=== PATIENT | female | born 1985 | race African-American/Black ===

== ENCOUNTER 2016-11-20 15:22 | Emergency (ER) | payer OTHER ==
[~2016-11-20] VITALS: Ht 165.1 cm; Wt 135.0 kg
[~2016-11-20 15:22] MED LIST: LORA10TA7 PO; PRENCAP6 PO
[2016-11-20 15:28] VITALS: BP 120/69; PULSE 85; RESP 20; TEMP 98.7; O2SAT 98
--- NOTE | 2016-11-20 15:59 | PD ---
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 Patient states she was going up the stairs in her home today when she developed abdominal cramping and a sharp pain and then started bleeding vaginally. She states that her last menstrual cycle was on September 12, 2016. She reports taking several home tests that were negative. [facility]. She denies any significant past medical history. Patient is PFSH Past Medical History Medical History: Denies Significant Hx Diminished Hearing: No ?: Not LMP: 09/12/16 : 1 Para: 1 Past Surgical History Surgical History: No Previous Surgery Social History Alcohol Use: No Tobacco Use: No Substance Use: No Allergies-Medications (Allergen,Severity, Reaction): Coded Allergies: No Known Allergies (Unverified , 11/20/16) Reported Meds & Prescriptions Reported Meds & Active Scripts Active Claritin (Loratadine) 10 Mg Tab 10 Mg PO DAILY Reported 1 ( Multivitamins) Cap 1 Cap PO DAILY Review of Systems Except as stated in HPI: all other systems reviewed are Neg Genitourinary: Positive: Pelvic Pain, Vaginal Bleeding Physical Exam Narrative GENERAL: Obese, well-developed, alert female. Resting comfortably in no acute distress. SKIN: Warm and dry. HEAD: Atraumatic. Normocephalic. EYES: Pupils equal and round. No scleral icterus. No injection or drainage. ENT: No nasal bleeding or discharge. Mucous membranes pink and moist. NECK: Trachea midline. No JVD. CARDIOVASCULAR: Regular rate and rhythm. RESPIRATORY: No accessory muscle use. Clear to auscultation. Breath sounds equal bilaterally. GASTROINTESTINAL: Abdomen soft, non-tender, nondistended. Hepatic and splenic margins not palpable. Positive bowel sounds, no rebound, no guarding. MUSCULOSKELETAL: Extremities without clubbing, cyanosis, or edema. No obvious deformities. NEUROLOGICAL: Awake and alert. No obvious cranial nerve deficits. Motor grossly within normal limits. Five out of 5 muscle strength in the arms and legs. Normal speech. PSYCHIATRIC: Appropriate mood and affect; insight and judgment normal. Data Data Last Documented VS Vital Signs Date Time Temp Pulse Resp B/P Pulse Ox O2 Delivery O2 Flow Rate FiO2 11/20/16 15:28 98.7 85 20 120/69 98 Room Air Orders Urinalysis - C+S If Indicated (11/20/16 15:41) Ed Urine Pregnancytest Poc (11/20/16 15:41) Labs Laboratory Tests Test 11/20/16 15:50 Urine Color LIGHT-RED Urine Turbidity CLEAR Urine pH 5.5 Urine Specific [place] 1.026 Urine Protein 30 mg/dL Urine Glucose (UA) NEG mg/dL Urine Ketones NEG mg/dL Urine Occult Blood MOD Urine Nitrite NEG Urine Bilirubin NEG Urine Urobilinogen LESS THAN 2.0 MG/DL Urine Leukocyte Esterase NEG Urine RBC /hpf Urine Bacteria RARE /hpf Urine Mucus FEW /lpf Microscopic Urinalysis Comment CULT NOT INDICATED MDM Medical Decision Making Medical Screen Exam Complete: Yes Emergency Medical Condition: Yes Interpretation(s) Vital Signs Date Time Temp Pulse Resp B/P Pulse Ox O2 Delivery O2 Flow Rate FiO2 11/20/16 15:28 98.7 85 20 120/69 98 Room Air Differential Diagnosis Miscarriage versus threatened versus menstrual cycle versus UTI versus other Narrative Course Patient is a 31-year-old female presenting to the emergency department evaluation of vaginal bleeding that started today while going up stairs in her home. Patient's vital signs are stable, abdominal exam is benign. Patient reports that her last vaginal cycle was at the end of August, she's had several negative home test. Patient's point of care test in the emergency department is negative. We'll check urinalysis. Patient has an appointment with the [facility] on this week. Urinalysis unremarkable. Patient is encouraged to keep her appointment with [facility] on . She will be given a prescription for ibuprofen. She is encouraged follow-up with her primary doctor as well. She was encouraged to return to emergency department for any new or worsening symptoms. Patient verbalized understanding of instructions. Patient stable for discharge. Diagnosis Primary Impression: Menstruation, irregular [facility] Patient Instructions: General Instructions, Menstruation (ED) Additional Instructions: Keep your appointment at the [facility] on Return to emergency department for any new or worsening symptoms Take medications as directed Med/Other Pt SpecificInfo: Prescription(s) given Scripts Ibuprofen 800 Mg [id number] Mg PO Q6HR PRN (PAIN) #40 TAB Ref 0 Prov:Sury Ochoa 11/20/16 Disposition: 01 DISCHARGE HOME Condition: Stable Sury Ochoa Nov 20, 2016 15:59
[2016-11-20 16:13] LABS: BACTERIA, URINE RARE /hpf; BLOOD, URINE MOD (NEG); GLUCOSE,URINE NEG (NEG); KETONE, URINE NEG (NEG); MUCUS URINE FEW /lpf (OCC); NITRITE,URINE NEG (NEG); PH, URINE 5.5 (5.0-8.5)
[2016-11-20 16:14] LABS: COMMENT (UR) CULT NOT INDICATED; CULTURE IF INDICATED CULT NOT INDICATED; URINE COLOR LIGHT-RED (YELLW/STRAW)
[2016-11-20] MEDS ORDERED: IBUP800T23 PO (16:20)
--- NOTE | 2016-11-20 16:28 | PD ---
Data Data Last Documented VS Vital Signs Date Time Temp Pulse Resp B/P Pulse Ox O2 Delivery O2 Flow Rate FiO2 11/20/16 15:28 98.7 85 20 120/69 98 Room Air Orders Urinalysis - C+S If Indicated (11/20/16 15:41) Ed Urine Pregnancytest Poc (11/20/16 15:41) Labs Laboratory Tests Test 11/20/16 15:50 Urine Color LIGHT-RED Urine Turbidity CLEAR Urine pH 5.5 Urine Specific [place] 1.026 Urine Protein 30 mg/dL Urine Glucose (UA) NEG mg/dL Urine Ketones NEG mg/dL Urine Occult Blood MOD Urine Nitrite NEG Urine Bilirubin NEG Urine Urobilinogen LESS THAN 2.0 MG/DL Urine Leukocyte Esterase NEG Urine RBC /hpf Urine Bacteria RARE /hpf Urine Mucus FEW /lpf Microscopic Urinalysis Comment CULT NOT INDICATED MDM Supervised Visit with FOZIA: Yes Narrative Course The history, exam, and medical decision-making in the associated mid-level provider note were completed with my assistance. I reviewed and agree with the findings presented. I attest that I had a [id number] encounter with the patient on the same day, and personally performed and documented my assessment and findings in the medical record. *My assessment and Findings: 31 year-old woman with vaginal bleeding and cramping suspicious for menses. Looks well. Benign exam. Not . Recommend supportive treatment. Diagnosis Primary Impression: Menstruation, irregular [facility] Patient Instructions: General Instructions, Menstruation (ED) Departure Forms: Tests/Procedures Additional Instruction: Keep your appointment at the [facility] now clinic on Return to emergency department for any new or worsening symptoms Take medications as directed Scripts Ibuprofen 800 Mg [id number] Mg PO Q6HR PRN (PAIN) #40 TAB Ref 0 Prov:Sury Ochoa Alva CALDERON 11/20/16 Disposition: 01 DISCHARGE HOME Condition: Stable Kip Masterson MD Nov 20, 2016 16:28
== END 2016-11-20 16:27 | disposition home or self-care (01) ==
LOC: NEPD 15:22
DX: N92.6 Irregular menstruation, unspecified (principal)
CPT/HCPCS: 81001; 84703; 99283

== ENCOUNTER 2017-06-21 16:34 | Emergency (ER) | payer SELFPAY ==
[~2017-06-21] VITALS: Ht 165.1 cm; Wt 109.1 kg
[~2017-06-21 16:34] MED LIST changes: +AZIT250T3 PO; +AZIT4SOL EACH EYE; +BROMSYP PO; +FLUT1SPR5 EACH NARE; -LORA10TA7 PO; -PRENCAP6 PO; +SPRI28TA PO
[2017-06-21 16:37] VITALS: BP 115/75; PULSE 93; RESP 17; TEMP 98.7; O2SAT 99
[2017-06-21 18:24] LABS: BILIRUBIN, URINE NEG (NEG); BLOOD, URINE LARGE (NEG); GLUCOSE,URINE NEG (NEG); KETONE, URINE NEG (NEG); MUCUS URINE FEW /lpf (OCC); NITRITE,URINE NEG (NEG); SQUAMOUS EPITHELIAL CELL URINE 3 /hpf (0-5); URINE COLOR YELLOW (YELLW/STRAW); URINE LEUKOCYTE ESTERASE TRACE (NEG)
[2017-06-21 18:25] LABS: AUTOMATED NEUTROPHIL # 3.9 TH/MM3 (1.8-7.7); BASOPHIL % 0.7 % (0.0-2.0); EOSINOPHIL # 0.1 TH/MM3 (0-0.4); EOSINOPHIL % 0.9 % (0.0-4.0); HEMATOCRIT 38.7 % (35.0-46.0); LYMPH % 29.5 % (9.0-44.0); LYMPHOCYTE # 1.8 TH/MM3 (1.0-4.8); MEAN CELL VOLUME 85.2 FL (80.0-100.0); MEAN CORPUSCULAR HEMOGLOBIN 28.5 PG (27.0-34.0); MEAN CORPUSCULAR HGB CONC 33.5 % (32.0-36.0); MEAN PLATELET VOLUME 8.1 FL (7.0-11.0); MONO % 5.5 % (0.0-8.0); MONOCYTE # 0.3 TH/MM3 (0-0.9); NEUT % 63.4 % (16.0-70.0); PLATELET COUNT 356 TH/MM3 (150-450); RED BLOOD COUNT 4.55 MIL/MM3 (4.00-5.30); RED CELL DISTRIBUTION WIDTH 14.3 % (11.6-17.2); WHITE BLOOD COUNT 6.2 TH/MM3 (4.0-11.0)
[2017-06-21 18:39] LABS: BICARBONATE 31.2 MEQ/L (21.0-32.0); CALCIUM 9.3 MG/DL (8.5-10.1); CREATININE 0.86 MG/DL (0.50-1.00)
[2017-06-21] MEDS ORDERED: KETOROLAC TROMETHAMINE 60 MG/2 ML (IM) VIAL IM ONE (19:30)
[2017-06-21 19:31] VITALS: BP_SYST 124; BP_SYST 130; BP_DIAS 76; BP_DIAS 86; BP_DIAS 98; RESP 18
--- NOTE | 2017-06-21 19:32 | PD ---
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 Pt is mainly here because she has vaginal bleeding for 14 days. Said it is light, maybe 2 pads a day. Said she also felt lightheaded today and has a left sided headed since 2pm. It is throbbing and associated with nausea and photophobia. Denies any fever, neck pain, chest pain, sob, abdominal pain, vaginal discharge, focal weakness or numbness. PFSH Past Medical History Diminished Hearing: No ?: Unknown : 1 Para: 1 Social History Alcohol Use: No Tobacco Use: No Substance Use: No Allergies-Medications (Allergen,Severity, Reaction): Coded Allergies: No Known Allergies (Unverified Adverse Reaction, Unknown, 06/21/17) Reported Meds & Prescriptions Reported Meds & Active Scripts Active No Active Prescriptions or Reported Medications Review of Systems Except as stated in HPI: all other systems reviewed are Neg Physical Exam Narrative GENERAL: 31yo F in mild distress. SKIN: Focused skin assessment warm/dry. HEAD: Atraumatic. Normocephalic. EYES: Pupils equal and round at 3mm bilaterally. EOMI. ENT: No nasal bleeding or discharge. Mucous membranes pink and moist. NECK: No nuchal rigidity. CARDIOVASCULAR: Regular rate and rhythm. No murmur appreciated. RESPIRATORY: No accessory muscle use. Clear to auscultation. Breath sounds equal bilaterally. GASTROINTESTINAL: Abdomen soft, non-tender, nondistended. PELVIC: +Small amount of blood from cervix. No CMT or adnexal tenderness bilaterally. MUSCULOSKELETAL: No obvious deformities. No clubbing. No cyanosis. No edema. NEUROLOGICAL: Awake and alert. No obvious cranial nerve deficits. Motor grossly within normal limits. Normal speech. PSYCHIATRIC: Appropriate mood and affect; insight and judgment normal. Data Data Last Documented VS Vital Signs Date Time Temp Pulse Resp B/P (MAP) Pulse Ox O2 Delivery O2 Flow Rate FiO2 06/21/17 19:31 86 18 124/76 (92) 92 18 124/98 (107) 92 18 130/86 (101) 06/21/17 16:37 98.7 99 Orders Orders Basic Metabolic Panel (Bmp) (06/21/17 16:52) Complete Blood Count With Diff (06/21/17 16:52) Urinalysis - C+S If Indicated (06/21/17 16:52) Ed Urine Pregnancytest Poc (06/21/17 16:52) Electrocardiogram (06/21/17 ) Orthostatic Vital Signs (06/21/17 19:21) Ketorolac Inj (Toradol Inj) (06/21/17 19:30) Labs Laboratory Tests Test 06/21/17 18:06 06/21/17 18:09 White Blood Count 6.2 TH/MM3 Red Blood Count 4.55 MIL/MM3 Hemoglobin 13.0 GM/DL Hematocrit 38.7 % Mean Corpuscular Volume 85.2 FL Mean Corpuscular Hemoglobin 28.5 PG Mean Corpuscular Hemoglobin Concent 33.5 % Red Cell Distribution Width 14.3 % Platelet Count 356 TH/MM3 Mean Platelet Volume 8.1 FL Neutrophils (%) (Auto) 63.4 % Lymphocytes (%) (Auto) 29.5 % Monocytes (%) (Auto) 5.5 % Eosinophils (%) (Auto) 0.9 % Basophils (%) (Auto) 0.7 % Neutrophils # (Auto) 3.9 TH/MM3 Lymphocytes # (Auto) 1.8 TH/MM3 Monocytes # (Auto) 0.3 TH/MM3 Eosinophils # (Auto) 0.1 TH/MM3 Basophils # (Auto) 0.0 TH/MM3 CBC Comment DIFF FINAL Differential Comment Blood Urea Nitrogen 9 MG/DL Creatinine 0.86 MG/DL Random Glucose 97 MG/DL Calcium Level 9.3 MG/DL Sodium Level 139 MEQ/L Potassium Level 4.2 MEQ/L Chloride Level 103 MEQ/L Carbon Dioxide Level 31.2 MEQ/L Anion Gap 5 MEQ/L Estimat Glomerular Filtration Rate 94 ML/MIN Urine Color YELLOW Urine Turbidity CLEAR Urine pH 6.0 Urine Specific [place] 1.021 Urine Protein TRACE mg/dL Urine Glucose (UA) NEG mg/dL Urine Ketones NEG mg/dL Urine Occult Blood LARGE Urine Nitrite NEG Urine Bilirubin NEG Urine Urobilinogen LESS THAN 2.0 MG/DL Urine Leukocyte Esterase TRACE Urine RBC 2 /hpf Urine WBC 1 /hpf Urine Squamous Epithelial Cells 3 /hpf Urine Mucus FEW /lpf Microscopic Urinalysis Comment CULT NOT INDICATED MDM Medical Decision Making Medical Screen Exam Complete: Yes Emergency Medical Condition: Yes Interpretation(s) EKG: NSR 68bpm. TWI III, V3. QTc 394ms. Differential Diagnosis Abnormal uterine bleeding vs. vs. migraine headache vs. anxiety Narrative Course 31yo F with vaginal bleeding for 14 days. Urine negative. Labs reviewed, no leukocytosis. H/H normal at 13/38.7. BMP unremarkable. UA showed large blood. WBC 1. Culture not indicated. Orthostatic negative. Pt is very well appearing and there is very small amount of blood in the cervix. Pt given toradol and both headache and dizziness resolved. Return precautions given. Diagnosis Primary Impression: Abnormal uterine bleeding Referrals: Susanne Khan MD call for appointment Abnormal uterine bleeding Patient Instructions: General Instructions Departure Forms: Tests/Procedures Additional Instructions: Please follow up with call manager in 2-3 days. Return to the ED if symptoms worsen. Med/Other Pt SpecificInfo: No Change to Meds Scripts No Active Prescriptions or Reported Meds Disposition: 01 DISCHARGE HOME Condition: Stable Lorrie Chandler DO Jun 21, 2017 19:32
--- NOTE | 2017-06-22 09:26 | EKG ---
Date Performed: 06/21/2017 Time Performed: 20:33:04 PTAGE: 31 years EKG: Sinus rhythm NORMAL ECG NO PREVIOUS TRACING DOCTOR: Gerson Ibarra Interpretating Date/Time 06/22/2017 09:23:35
== END 2017-06-21 22:07 | disposition home or self-care (01) ==
LOC: NEPD 16:34
DX: N93.9 Abnormal uterine and vaginal bleeding, unspecified (principal); R11.0 Nausea; R42 Dizziness and giddiness
CPT/HCPCS: 80048; 81001; 84703; 85025; 93005; 96372; 99284; J1885

== ENCOUNTER 2017-10-06 16:32 | Emergency (ER) | payer MEDICAID ==
[2017-10-06 16:34] VITALS: BP 133/92; PULSE 79; RESP 16; TEMP 98.3; O2SAT 100
[2017-10-06 17:46] LABS: BACTERIA, URINE RARE /hpf; BILIRUBIN, URINE NEG (NEG); BLOOD, URINE NEG (NEG); GLUCOSE,URINE NEG (NEG); KETONE, URINE NEG (NEG); MUCUS URINE MOD /lpf (OCC); NITRITE,URINE NEG (NEG); SQUAMOUS EPITHELIAL CELL URINE 15 /hpf (0-5); URINE COLOR YELLOW (YELLW/STRAW); URINE LEUKOCYTE ESTERASE SMALL (NEG)
[2017-10-06 17:47] LABS: BASOPHIL % 0.5 % (0.0-2.0); EOSINOPHIL # 0.1 TH/MM3 (0-0.4); EOSINOPHIL % 0.7 % (0.0-4.0); HEMATOCRIT 37.2 % (35.0-46.0); HEMOGLOBIN 12.1 GM/DL (11.6-15.3); LYMPH % 28.1 % (9.0-44.0); LYMPHOCYTE # 2.2 TH/MM3 (1.0-4.8); MEAN CELL VOLUME 82.9 FL (80.0-100.0); MEAN CORPUSCULAR HGB CONC 32.5 % (32.0-36.0); MEAN PLATELET VOLUME 8.8 FL (7.0-11.0); MONO % 7.9 % (0.0-8.0); MONOCYTE # 0.6 TH/MM3 (0-0.9); NEUT % 62.8 % (16.0-70.0); PLATELET COUNT 362 TH/MM3 (150-450); RED BLOOD COUNT 4.48 MIL/MM3 (4.00-5.30); RED CELL DISTRIBUTION WIDTH 14.1 % (11.6-17.2); WHITE BLOOD COUNT 7.9 TH/MM3 (4.0-11.0)
[2017-10-06 18:00] LABS: BICARBONATE 27.6 MEQ/L (21.0-32.0); CALCIUM 8.8 MG/DL (8.5-10.1); CREATININE 0.86 MG/DL (0.50-1.00)
--- NOTE | 2017-10-06 19:29 | PD ---
HPI Chief Complaint: GI Complaint Time Seen by Provider: 19:05 Travel History International Travel<30 days: No Contact w/Intl Traveler<30days: No Traveled to known affect area: No History of Present Illness HPI The patient is a 31-year-old female who presents emergency department for abdominal pain, nausea, and vomiting. The patient is a 2 week history of nausea and vomiting, throughout the day, last episode was earlier today. The patient is hungry, last try to eat earlier today while in the waiting room, a cupcake. The nausea and vomiting is intermittent, not just in the morning, and is improved when she eats spicy foods. She also complains of abdominal pain that she was epigastric, is now looking the right lower quadrant. The patient's last menstrual cycle was at the beginning of July, she has taken several home tests which are negative. She denies any vaginal discharge or bleeding. She denies any previous abdominal surgeries. She denies any fever, chills, or sweats. Symptoms are moderate. PFSH Past Medical History Medical History: Denies Significant Hx Diminished Hearing: No ?: Unknown : 1 Para: 1 Past Surgical History Surgical History: No Previous Surgery Social History Alcohol Use: No Tobacco Use: No Substance Use: No Allergies-Medications (Allergen,Severity, Reaction): Coded Allergies: No Known Allergies (Unverified Adverse Reaction, Unknown, 06/21/17) Reported Meds & Prescriptions Reported Meds & Active Scripts Active No Active Prescriptions or Reported Medications Review of Systems Except as stated in HPI: all other systems reviewed are Neg General / Constitutional: No: Fever HENT: No: Lightheadedness Cardiovascular: No: Chest Pain or Discomfort Respiratory: No: Shortness of Breath Gastrointestinal: Positive: Nausea, Vomiting, Abdominal Pain, No: Diarrhea, Constipation, Loss of Appetite Genitourinary: No: Dysuria, Discharge, Vaginal Bleeding Physical Exam Narrative GENERAL: Awake, alert, pleasant 31-year-old female who appears her stated age and is in no acute respiratory distress. SKIN: Focused skin assessment warm/dry. HEAD: Atraumatic. Normocephalic. EYES: Pupils equal and round. No scleral icterus. No injection or drainage. ENT: No nasal bleeding or discharge. Mucous membranes pink and moist. NECK: Trachea midline. No JVD. CARDIOVASCULAR: Regular rate and rhythm. No murmur appreciated. RESPIRATORY: No accessory muscle use. Clear to auscultation. Breath sounds equal bilaterally. GASTROINTESTINAL: Abdomen soft, obese, tender in the right lower quadrant. No guarding or rigidity. Back: No CVA tenderness. MUSCULOSKELETAL: No obvious deformities. No clubbing. No cyanosis. No edema. NEUROLOGICAL: Awake and alert. No obvious cranial nerve deficits. Motor grossly within normal limits. Normal speech. PSYCHIATRIC: Appropriate mood and affect; insight and judgment normal. Data Data Last Documented VS Vital Signs Date Time Temp Pulse Resp B/P (MAP) Pulse Ox O2 Delivery O2 Flow Rate FiO2 10/06/17 16:34 98.3 79 16 133/92 (106) 100 Orders Orders Complete Blood Count With Diff (10/06/17 16:36) Basic Metabolic Panel (Bmp) (10/06/17 16:36) Lipase (10/06/17 16:36) Urinalysis - C+S If Indicated (10/06/17 16:36) Ed Urine Pregnancytest Poc (10/06/17 16:36) Ct Abd/Pel W Iv Contrast(Rout) (10/06/17 ) Ondansetron Odt (Zofran Odt) (10/06/17 19:30) Ketorolac Inj (Toradol Inj) (10/06/17 19:30) Sodium Chlor 0.9% 1000 Ml Inj (Ns 1000 M (10/06/17 19:30) Iohexol 350 Inj (Omnipaque 350 Inj) (10/06/17 20:09) Labs Laboratory Tests Test 10/06/17 16:45 White Blood Count 7.9 TH/MM3 Red Blood Count 4.48 MIL/MM3 Hemoglobin 12.1 GM/DL Hematocrit 37.2 % Mean Corpuscular Volume 82.9 FL Mean Corpuscular Hemoglobin 27.0 PG Mean Corpuscular Hemoglobin Concent 32.5 % Red Cell Distribution Width 14.1 % Platelet Count 362 TH/MM3 Mean Platelet Volume 8.8 FL Neutrophils (%) (Auto) 62.8 % Lymphocytes (%) (Auto) 28.1 % Monocytes (%) (Auto) 7.9 % Eosinophils (%) (Auto) 0.7 % Basophils (%) (Auto) 0.5 % Neutrophils # (Auto) 5.0 TH/MM3 Lymphocytes # (Auto) 2.2 TH/MM3 Monocytes # (Auto) 0.6 TH/MM3 Eosinophils # (Auto) 0.1 TH/MM3 Basophils # (Auto) 0.0 TH/MM3 CBC Comment DIFF FINAL Differential Comment Urine Color YELLOW Urine Turbidity HAZY Urine pH 6.0 Urine Specific [place] 1.029 Urine Protein TRACE mg/dL Urine Glucose (UA) NEG mg/dL Urine Ketones NEG mg/dL Urine Occult Blood NEG Urine Nitrite NEG Urine Bilirubin NEG Urine Urobilinogen LESS THAN 2.0 MG/DL Urine Leukocyte Esterase SMALL Urine RBC 1 /hpf Urine WBC 5 /hpf Urine Squamous Epithelial Cells 15 /hpf Urine Bacteria RARE /hpf Urine Mucus MOD /lpf Microscopic Urinalysis Comment CULT NOT INDICATED Blood Urea Nitrogen 15 MG/DL Creatinine 0.86 MG/DL Random Glucose 69 MG/DL Calcium Level 8.8 MG/DL Sodium Level 137 MEQ/L Potassium Level 3.9 MEQ/L Chloride Level 103 MEQ/L Carbon Dioxide Level 27.6 MEQ/L Anion Gap 6 MEQ/L Estimat Glomerular Filtration Rate 94 ML/MIN Lipase 125 U/L [facility] Medical Decision Making Medical Screen Exam Complete: Yes Emergency Medical Condition: Yes Medical Record Reviewed: Yes Differential Diagnosis Differential diagnosis includes , gastroenteritis, UTI, pancreatitis, enteritis, colitis, gastroparesis, partial small bowel obstruction. Narrative Course IV was established, labs are drawn and sent, and the patient was placed on cardiac telemetry monitoring and continuous pulse oximetry monitoring. The patient was administered IV fluids, Zofran, and Toradol. Bedside UA test was obtained, was negative. UA was sent to lab. Patient's white count, BMP, lipase, and UA are unremarkable. CT of the abdomen and pelvis was performed as patient has had 2 weeks of intermittent symptoms with no resolution of symptoms. The patient's laboratory evaluation is unremarkable. CT of the abdomen and pelvis with contrast reveals no acute disease. Patient's symptoms have been ongoing for 2 weeks, however, vitals are within normal limits and labs are unremarkable. Patient is stable for outpatient follow-up. Diagnosis Primary Impression: Nausea & vomiting Qualified Codes: R11.2 - Nausea with vomiting, unspecified Additional Impression: Abdominal pain Qualified Codes: R10.31 - Right lower quadrant pain Patient Instructions: General Instructions Additional Instructions: Medications as directed. Follow-up with your primary physician. If symptoms persist he may benefit from evaluation by gastroenterology. Clear liquid diet and advance as tolerated. Med/Other Pt SpecificInfo: Prescription(s) given Scripts Dicyclomine (Bentyl) 10 Mg Cap 10 MG PO QID for Bowel Management, #12 CAP 0 Refills Prov: Ajith Manuel MD 10/06/17 Ondansetron Odt (Zofran Odt) 4 Mg Tab 4 MG SL Q6HR Y for Nausea/Vomiting, #7 TAB 0 Refills Prov: Ajith Manuel MD 10/06/17 Disposition: 01 DISCHARGE HOME Condition: Stable Ajith Manuel MD October 06, 2017 19:29
[2017-10-06] MEDS ORDERED: KETOROLAC TROMETHAMINE 30 MG/ML (IVP) VIAL IV PUSH ONE (19:30)
[2017-10-06] MEDS ORDERED: ONDANSETRON ODT 4 MG TAB PO ONE (19:30)
[2017-10-06] MEDS ORDERED: SODIUM CHLOR 0.9% 1000 ML INJ 1,000 ML IV ONE (19:30)
[2017-10-06] MEDS ORDERED: IOHEXOL 350 MG/ML 10 ML VIAL (for RAD DIAG) IVCONTRAST ONE (20:09)
--- NOTE | 2017-10-06 21:30 | RADRPT ---
EXAM DATE/TIME: 10/06/2017 20:07 [place] COMPARISON: No previous studies available for comparison. INDICATIONS : Abdominal pain, vomiting IV CONTRAST: 70 cc Omnipaque 350 (iohexol) IV ORAL CONTRAST: No oral contrast ingested. RADIATION DOSE: 20.78 CTDIvol (mGy) ; Patient body habitus MEDICAL HISTORY : None SURGICAL HISTORY : None. ENCOUNTER: Initial ACUITY: 1 week PAIN SCALE: 5/10 LOCATION: Right lower quadrant TECHNIQUE: Volumetric scanning of the abdomen and pelvis was performed. Using automated exposure control and ad justment of the mA and/or kV according to patient size, radiation dose was kept as low as reasonably achievable to obtain optimal diagnostic quality images. DICOM format image data is available electro nically for review and comparison. FINDINGS: LOWER LUNGS: The visualized lower lungs are clear. LIVER: Homogeneous density without lesion. There is no dilation of the biliary tree. No calcified gallston es. SPLEEN: Normal size without lesion. PANCREAS: Within normal limits. KIDNEYS: Normal in size and shape. There is no mass, stone or hydronephrosis. ADRENAL GLANDS: Within normal limits. VASCULAR: There is no aortic aneurysm. BOWEL/MESENTERY: The stomach, small bowel, and colon demonstrate no acute abnormality. There is no free intraperitone al air or fluid. ABDOMINAL WALL: Within normal limits. RETROPERITONEUM: There is no lymphadenopathy. BLADDER: No wall thickening or mass. REPRODUCTIVE: There is mild cystic change of the left ovary measuring up to 2.1 cm. INGUINAL: There is no lymphadenopathy or hernia. MUSCULOSKELETAL: Within normal limits for patient age. CONCLUSION: No acute disease. Pa Nova MD on October 06, 2017 at 21:26 Board Certified Radiologist. This report was verified electronically.
[2017-10-06] MEDS ORDERED: DICY10 PO (21:34)
[2017-10-06] MEDS ORDERED: ZOFR4TAB3 SL (21:34)
== END 2017-10-06 22:23 | disposition home or self-care (01) ==
LOC: NEPD 16:32
DX: R11.2 Nausea with vomiting, unspecified (principal); R10.31 Right lower quadrant pain
CPT/HCPCS: 74177; 80048; 81001; 83690; 84703; 85025; 96374; 99284; J1885; J7030; Q9967